=== PATIENT | male | born 1940 | race Caucasian/White ===

== ENCOUNTER → 2016-05-24 | Outpatient (CLI) | payer MEDICARE, BC | END | disposition home or self-care (01) | LOC: PCVCIMAG 12:34 | PROVIDERS: ATTEND Internal Medicine Cardiovascular Disease | DX: I65.23 Occlusion and stenosis of bilateral carotid arteries (principal); E78.00 Pure hypercholesterolemia, unspecified; I25.10 Atherosclerotic heart disease of native coronary artery without angina pectoris; R42 Dizziness and giddiness; I10 Essential (primary) hypertension; I45.10 Unspecified right bundle-branch block; R53.83 Other fatigue | CPT/HCPCS: 80061; 93005; 93880; G0463 ==

== ENCOUNTER → 2017-03-09 | Outpatient (CLI) | payer MEDICARE, BC | END | disposition home or self-care (01) | LOC: PCVCCLINIC 12:41 | DX: I25.10 Atherosclerotic heart disease of native coronary artery without angina pectoris (principal); I10 Essential (primary) hypertension; I45.10 Unspecified right bundle-branch block; I77.9 Disorder of arteries and arterioles, unspecified; E78.00 Pure hypercholesterolemia, unspecified; R94.31 Abnormal electrocardiogram [ECG] [EKG]; I44.0 Atrioventricular block, first degree; Z79.899 Other long term (current) drug therapy | CPT/HCPCS: 80061; 93005; G0463 ==

== ENCOUNTER → 2017-06-22 | Outpatient (CLI) | payer MEDICARE, BC | END | disposition home or self-care (01) | LOC: PCVCIMAG 12:41 | DX: I25.10 Atherosclerotic heart disease of native coronary artery without angina pectoris (principal); I10 Essential (primary) hypertension; R53.83 Other fatigue; I45.10 Unspecified right bundle-branch block; E78.5 Hyperlipidemia, unspecified | CPT/HCPCS: 93325; 93351 ==

== ENCOUNTER → 2018-06-08 | Outpatient (CLI) | payer MEDICARE, BC | END | disposition home or self-care (01) | LOC: PCVCCLINIC 13:00 | PROVIDERS: ATTEND Internal Medicine Cardiovascular Disease | DX: I25.10 Atherosclerotic heart disease of native coronary artery without angina pectoris (principal); I10 Essential (primary) hypertension; E78.00 Pure hypercholesterolemia, unspecified; R07.89 Other chest pain; R68.89 Other general symptoms and signs; R06.02 Shortness of breath | CPT/HCPCS: 36415; 80061; 93005; G0463 ==

== ENCOUNTER → 2018-06-26 | Outpatient (CLI) | payer MEDICARE, BC ==
[~2018-06-26] MED LIST: REGADENOSON 0.4 MG/5 ML DISP.SYRIN. IV ONE
--- NOTE | 2018-06-26 16:09 | PCVCIMAG ---
APPROVED REPORT Study performed: 06/26/2018 12:58:40 EXAM: Comprehensive 2D, Doppler, and color-flow Echocardiogram Patient Location: Echo lab Status: routine BSA: 1.89 HR: 62 bpmBP: 128/70 mmHg Rhythm: NSR Other Information Study Quality: Adequate Risk Factors: Cardiac Risk Factors: HTN, Hyperlipidemia Indications Dyspnea Chest Pain 2D Dimensions IVSd: 13.34 (7-11mm)LVOT Diam: 22.94 (18-24mm) LVDd: 32.71 mm PWd: 13.64 (7-11mm)Ascending Ao: 37.74 (22-36mm) LVDs: 22.47 (25-40mm) Left Atrium: 26.50 (27-40mm) Aortic Root: 32.79 mm LV Single Plane 4CH: 51.89 % LV Single Plane 2CH: 56.66 % Biplane EF: 57.4 % Volumes Left Atrial Volume (Systole) Single Plane 4CH: 34.04 mLSingle Plane 2CH: 12.02 mL LA ESV Index: 12.00 mL/m2 Aortic Valve AoV Peak Bryant.: 1.34 m/s AO Peak Gr.: 7.13 mmHg AI Vmax: 4.16 m/s AI [place]: 2.37 m/s2 AI PHT: 508.33 ms Mitral Valve E/A Ratio: 0.6 MV Decel. Time: 209.78 ms MV E Max Bryant.: 0.43 m/s MV A Bryant.: 0.77 m/s TDI E/Lateral E': 6.14E/Medial E': 10.75 Medial E' Bryant.: 0.04 m/s Lateral E' Bryant.: 0.07 m/s Pulmonary Valve PV Peak Gr.: 1.55 mmHg Pulmonary Vein P Vein S: 0.78 m/sP Vein A: 0.48 m/s P Vein D: 0.50 m/sP Vein A Dur.: 110.7 msec P Vein S/D Ratio: 1.56 Tricuspid Valve TR Peak Bryant.: 2.62 m/s TR Peak Gr.: 27.43 mmHg Left Ventricle The left ventricle is normal size. There is normal LV segmental wall motion. There is normal left ventricular wall thickness. Left ventricular systolic function is normal. The left ventricular ejection fraction is within the normal range. LVEF is 55-60%. The left ventricular diastolic function is normal. Right Ventricle The right ventricle is normal size. The right ventricular systolic function is normal. Atria The left atrium size is normal. The right atrium size is normal. Aortic Valve The aortic valve is normal in structure. Trace to mild aortic regurgitation. There is no aortic valvular stenosis. Mitral Valve The mitral valve is normal in structure. There is no mitral valve regurgitation noted. No evidence of mitral valve stenosis. Tricuspid Valve The tricuspid valve is normal in structure. Trace to mild tricuspid regurgitation. Pulmonary artery pressure is 35mmHg. Pulmonic Valve The pulmonary valve is normal in structure. Trace to mild pulmonic regurgitation. Great Vessels The aortic root is normal in size. IVC is normal in size and collapses >50% with inspiration. Pericardium There is no pericardial effusion. <Conclusion> The left ventricle is normal size. Left ventricular systolic function is normal. The left ventricular ejection fraction is within the normal range. LVEF is 55-60%. The right ventricle is normal size. The left atrium size is normal. The right atrium size is normal. Trace to mild aortic regurgitation. There is no mitral valve regurgitation noted. Trace to mild tricuspid regurgitation. Pulmonary artery pressure is 35mmHg. The aortic root is normal in size. There is no pericardial effusion.
--- NOTE | 2018-06-27 12:21 | PCVCIMAG ---
APPROVED REPORT Imaging Protocol: Rest Tc-99m/Stress Tc-99m 1 day Study performed: 06/26/2018 14:12:15 Indication: CAD, Chest pain, Dyspnea, Elevated Calcium, Vertigo, Fatigue, Hx of LBBB Patient Location: Out-Patient Stress Nurse: Julia Xavier RN, RU [place] Tech:BLANCHE Bueno Ht: 5 ft 8 in Wt: 170 lbs BSA: 1.91 m2 HR: 61 bpm BP: 164/79 mmHg BMI: 25.8 Rhythm: Sinus Rhythm, RBBB Medical History Medical History: Age, Hyperlipidemia, HTN, CVD, High CA Score Medications: Atorvastatin, Losartan, Antivert Allergies: Codeine Pretest Chest Pain Characteristics: No chest pain Exercise History: Physically active Resting Data Rest SPECT myocardial perfusion imaging was performed in supine position 45 minutes following the intravenous injection of 12 mCi of Tc-99m Sestamibi. Time of rest injection: 1330 Date: 06/26/2018 Administration Route: IV Administration Site: Right AC Pharmacologic Stress Pharmacologic stress test was performed by injecting Regadenoson 0.4 mg IV push over 10-15 seconds immediately followed by the intravenous injection of 35.4 mCi of Tc-99m Sestamibi. Time of stress injection: 1445 Date: 06/26/2018 Administration Route: IV Administration Site: Right AC Gated Stress SPECT was performed 45 minutes after stress injection. The images were gated to evaluate regional wall motion and calculate left ventricular ejection fraction. Stress Test Details Stress Test: Pharmacologic stress testing performed using 0.4 mg of regadenoson per 5 mL given IV over 10 seconds. Reason for pharmacologic stress test: LBBB. HRMax Heart Rate (APMHR): 142 bpm Resting HR: 61 bpmTarget HR (85% APMHR): 120 bpm Max HR Achieved: 86 bpm % of APMHR: 60 Recovery HR: 78 bpm BP Resting BP: 164/79 mmHg Max BP: 123/66 mmHg Recovery BP: 132/71 mmHg ECG Resting ECG: Sinus Rhythm, RBBB Stress ECG: Sinus Rhythm, RBBB Arrhythmia: PVC's Recovery ECG: Sinus Rhythm, RBBB Clinical Reason for Termination: Completed protocol Stress Symptoms: Dyspnea Exercise duration: min 55 sec Symptoms resolved during recovery. Stress ECG Conclusion ECG: Non-ischemic Study Quality Study: Good Study Data Post stress, the left ventricular ejection was 74%.. SSS: 5 SRS: 4 SDS: 1 TID = 0.86. Perfusion No evidence of stress induced ischemia or prior myocardial infarction. Wall Motion Normal left ventricular size and function with no regional wall motion abnormalities. Nuclear Conclusion No evidence of stress induced ischemia or prior myocardial infarction. Normal left ventricular size and function with no regional wall motion abnormalities. Post stress, the left ventricular ejection was 74%. No prior study available for comparison. Interpreted by: Bret Tanner MD Electronically Approved: 06/26/2018 16:11:01 <Conclusion> ECG: Non-ischemic
== END | disposition home or self-care (01) ==
LOC: PCVCIMAG 12:24
PROVIDERS: ATTEND Internal Medicine Cardiovascular Disease
DX: I08.2 Rheumatic disorders of both aortic and tricuspid valves (principal); R06.09 Other forms of dyspnea; R07.9 Chest pain, unspecified; R93.1 Abnormal findings on diagnostic imaging of heart and coronary circulation; R42 Dizziness and giddiness; R53.83 Other fatigue; I10 Essential (primary) hypertension; R68.89 Other general symptoms and signs
CPT/HCPCS: 78452; 93017; 93306; A9500; J2785